=== PATIENT | male | born 1960 | race Hispanic/Latino ===

== ENCOUNTER 2017-02-10 08:54 | Day surgery (SDC) | payer OTHER ==
[2015-02-16 09:05] VITALS: BMI 26.9
[2017-02-10] MEDS ORDERED: Lactated Ringer's 1,000 ML IV ONE (09:14)
[2017-02-10 09:26] VITALS: TEMP 97
[2017-02-10] MEDS ORDERED: Lidocaine 2% MPF (5 ml) Inj ONE (09:37)
[2017-02-10] MEDS ORDERED: Propofol 10 mg/ml Inj (20 ML) ONE (09:37)
[2017-02-10 10:21] VITALS: BP 121/71; PULSE 68; RESP 14; O2SAT 100
== END 2017-02-10 10:37 | disposition home or self-care (01) ==
LOC: H.ENDO 08:54
PROVIDERS: ATTEND Internal Medicine Gastroenterology
DX: Z12.11 Encounter for screening for malignant neoplasm of colon (principal); D12.5 Benign neoplasm of sigmoid colon; K64.8 Other hemorrhoids
CPT/HCPCS: 45380; 88305; J2704; J7120

== ENCOUNTER 2017-04-19 14:51 | Observation (INO) | payer OTHER ==
[2017-04-19 14:51] VITALS: BMI 26.9
[2017-04-19] MEDS ORDERED: Sodium Chloride 0.9% 1,000 ML IV SCH (15:30)
--- NOTE | 2017-04-19 15:57 | RAD ---
HISTORY: recurrent cp for 3 days COMPARISON: No prior. TECHNIQUE: Chest PA and lateral FINDINGS: LUNGS: No active pulmonary disease. PLEURA: No significant pleural effusion identified. No pneumothorax apparent. CARDIOVASCULAR: Normal. OSSEOUS STRUCTURES: No significant abnormalities. VISUALIZED UPPER ABDOMEN: Normal. OTHER FINDINGS: None. IMPRESSION: No active disease.
--- NOTE | 2017-04-19 16:15 | ED PDOC ---
HPI: Chest Pain Time Seen by Provider: 04/19/17 15:05 Chief Complaint (Nursing): Chest Pain Chief Complaint (Provider): Chest Pain History Per: Patient History/Exam Limitations: no limitations Onset/Duration Of Symptoms: Days (x3) Current Symptoms Are (Timing): Still Present Quality: Tightness (shooting) Associated Symptoms: Nausea, Dyspnea, Diaphoresis Additional Complaint(s): Khang Barnett is a 56 year old male, with a past medical history of idiopathic peripheral neuropathy, and hypercholesterolemia, who was brought to the emergency department via EMS for left sided chest pain ongoing for the past x3 days without associated activity. Patient describes the pain as a shooting tightness and states episodes last approximately 15 min before resolve on their own. Today after lunch he noticed more shortness of breath, nausea and sweating at work. 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 Patient is currently taking Vitamin B for the peripheral neuropathy. He has a family history of cardiac disease but is unaware of which disease. Patient is a non smoker, no cocaine or ETOH use, but he occasionally smokes cannabis. He denies any other medical complaints. PMD: Jeyson Ledesma Past Medical History Reviewed: Historical Data, Nursing Documentation, Vital Signs Vital Signs: Last Vital Signs Temp 97.0 F L 04/19/17 14:54 Pulse 81 04/19/17 16:28 Resp 16 04/19/17 14:54 BP 151/86 H 04/19/17 15:51 Pulse Ox 100 04/19/17 16:28 - Medical History PMH: Anxiety, Depression, Hypercholesterolemia, Kidney Stones, Chronic Kidney Disease Other PMH: Idiopathic Peripheral Neuropathy - Surgical History Surgical History: Appendectomy - Family History Family History: States: Unknown Family Hx Other Family History: Heart disease but unaware of which disease. - Social History Current smoker - smoking cessation education provided: No Alcohol: None Drugs: Cannabis (occasional) - Immunization History Hx Influenza Vaccination: Yes - Home Medications Home Medications: Ambulatory Orders Medication Instructions Recorded Fenofibric Acid (Choline) 1 tab PO DAILY 02/10/17 [Trilipix] - Allergies Allergies/Adverse Reactions: Allergies Allergy/AdvReac Type Severity Reaction Status Date / Time No Known Allergies Allergy Verified 04/19/17 14:54 CHARLY Risk Score for UA/NSTEMI - CHARLY Risk Score Age > 64: NO 3 or more CAD Risk Factors: YES Known CAD (Stenosis greater than 50%): NO Aspirin use in past 7 days: NO Severe Angina: NO EKG ST changes greater than 0.5mm: NO Positive Cardiac Marker: NO CHARLY Score: 1 Risk %: 5% Review of Systems ROS Statement: Except As Marked, All Systems Reviewed And Found Negative Cardiovascular: Positive for: Chest Pain (x3 days) Respiratory: Positive for: Shortness of Breath, Other (diaphoresis ) Gastrointestinal: Positive for: Nausea Physical Exam - Reviewed Nursing Documentation Reviewed: Yes Vital Signs Reviewed: Yes - Physical Exam Appears: Positive for: Non-toxic, No Acute Distress (without any symptoms) Head Exam: Positive for: ATRAUMATIC, NORMAL INSPECTION, NORMOCEPHALIC Skin: Positive for: Normal Color, Warm, Dry Eye Exam: Positive for: Normal appearance, EOMI, PERRL Neck: Positive for: Painless ROM, Supple Cardiovascular/Chest: Positive for: Regular Rate, Rhythm. Negative for: Edema, Murmur Respiratory: Positive for: Normal Breath Sounds (clear auscultation b/l). Negative for: Respiratory Distress Gastrointestinal/Abdominal: Positive for: Normal Exam, Soft. Negative for: Tenderness, Guarding, Rebound Back: Positive for: Normal Inspection. Negative for: L CVA Tenderness, R CVA Tenderness, Vertebral Tenderness Extremity: Positive for: Normal ROM. Negative for: Pedal Edema, Deformity, Swelling Neurologic/Psych: Positive for: Alert, Oriented (x3). Negative for: Motor/ Sensory Deficits - ECG ECG Rhythm: Positive for: Sinus Rhythm (normal) Interpretation Of ECG: Normal axis Rate: 81 O2 Sat by Pulse Oximetry: 100 Medical Decision Making Medical Decision Making: Initial Impression: Recurrent chest pain. Initial Plan: --EKG --CMP --Troponin I --CBC w/ differential --PTT --PT --Chest two views (PA/LAT) [RAD] --Aspirin Chewable 162mg PO --Lopressor 25 mg PO --Sodium Chloride 1,000 ml IV 125 mls/hr --Urinalsysis --reevaluation --Doing cardiac workup, and keep him for observation. 15:43 Chest X-Ray FINDINGS: LUNGS: No active pulmonary disease. PLEURA: No significant pleural effusion identified. No pneumothorax apparent. CARDIOVASCULAR: Normal. OSSEOUS STRUCTURES: No significant abnormalities. VISUALIZED UPPER ABDOMEN: Normal. OTHER FINDINGS: None. IMPRESSION: No active disease. Scribe Attestation: Documented by Deniz Albarran, acting as a scribe for Chichi Bah MD. Provider Scribe Attestation: All medical record entries made by the Scribe were at my direction and personally dictated by me. I have reviewed the chart and agree that the record accurately reflects my personal performance of the history, physical exam, medical decision making, and the department course for this patient. I have also personally directed, reviewed, and agree with the discharge instructions and disposition. 4.30p patient has recurrent chest pain that has progressed over the past 3 days with increasing symptoms that suggests underlying coronary ischemia. will admit for observation. Disposition - Clinical Impression Clinical Impression: Chest pain - Patient ED Disposition Is Patient to be Admitted: Yes Doctor Will See Patient In The: Hospital Counseled Patient/Family Regarding: Diagnosis - Disposition Disposition: Transfer of Care Disposition Time: 16:30 Condition: STABLE Forms: Elastra (Kittitian) - Pt Status Changed To: Hospital Disposition Of: Observation - POA Present On Arrival: None
[2017-04-19 16:32] LABS: URINE BILIRUBIN NEGATIVE (NEGATIVE); URINE BLOOD NEGATIVE (NEGATIVE); URINE CLARITY CLEAR (Clear); URINE COLOR YELLOW (YELLOW); URINE GLUCOSE (UA) NEG (Normal); URINE LEUKOCYTE ESTERASE NEG Leu/uL (Negative); URINE NITRATE NEGATIVE (NEGATIVE); URINE PROTEIN NEGATIVE (NEGATIVE); URINE UROBILINOGEN 0.2-1.0 mg/dL (0.2-1.0)
[2017-04-19 17:38] LABS: PARTIAL THROMBOPLASTIN TIME 32.3 Seconds (25.6-37.1); PROTHROMBIN TIME 11.1 Seconds (9.8-13.1)
[2017-04-19 17:40] LABS: BASO % 0.7 % (0.0-2.0); EOS # 0.1 K/uL (0.0-0.7); EOS % 2.1 % (0.0-4.0); HEMOGLOBIN 15.9 g/dL (12.0-18.0); LYMPH # 2.1 K/uL (1.0-4.3); LYMPH % 39.3 % (20.0-40.0); MEAN CELL VOLUME 91.5 fl (80.0-94.0); MEAN CORPUSCULAR HEMOGLOBIN 31.8 pg (27.0-31.0); MEAN CORPUSCULAR HGB CONC 34.7 g/dL (33.0-37.0); MONO # 0.3 K/uL (0.0-0.8); MONO % 6.3 % (0.0-10.0); NEUT # 2.7 K/uL (1.8-7.0); NEUT % 51.6 % (50.0-75.0); NRBC % 0.3 % (0.0-0.0); RBC 4.99 Mil/uL (4.40-5.90); RED CELL DISTRIBUTION WIDTH 12.7 % (11.5-14.5); WHITE BLOOD COUNT 5.3 K/uL (4.8-10.8)
[2017-04-19 17:46] LABS: ALB/GLOB RATIO 1.6 (1.0-2.1); ALBUMIN 4.4 g/dL (3.5-5.0); ALT/SGPT 71 U/L (21-72); AST/SGOT 41 U/L (17-59); BLOOD UREA NITROGEN 20 mg/dl (9-20); CALCIUM 9.9 mg/dL (8.4-10.2); GFR AFRICAN-AMERICAN > 60; GFR NON-AFRICAN AMERICAN > 60
--- NOTE | 2017-04-19 17:46 | CP.PCM.HP ---
<Penny Barrera - Last Filed: 04/19/17 20:35> History of Present Illness - History of Present Illness History of Present Illness: Pt seen and examined at bedside and history obtained from patient. CC: Squeezing chest pain for 3 days 56M p/w 3 days of intermittent "squeezing like chest pain". All episodes were squeezing, non-radiating, lasting 15-20 seconds and recurred 3-4x at each event. These episodes were not associated with SOB, nausea, or diaphoresis until today's event which he describes as experiencing some associated dizziness and diaphoresis. Otherwise, he denies any cough, congestion, post-nasal drip, sick contacts. Currently denies dizziness, chest pain, palpitations, SOB. PMH: Peripheral Neuropathy PSH: Appendectomy, Repair deviated septum, heel spurs PFH: Father- HTN/Lung ca (smoking hx); Mother- MS; Sister #1- MS; Sister #2- Healthy SHx: Denies Smoking, Denies Alcohol, Drugs- Occasional marijuana use ALL: NKDA ED COURSE Labs: WNL except slightly elevated random glucose Trop #1: Negative EKG: HR-81bpm, SR, no acute ST-T changes CXR: "No active disease" Influenza: Negative Present on Admission - Present on Admission Any Indicators Present on Admission: No Review of Systems - Cardiovascular Cardiovascular: Chest Pain, Palpitations Past Patient History - Past Medical History & Family History Past Medical History?: No - Past Social History Alcohol: None Drugs: Cannabis (occasional) - CARDIAC Hx Hypercholesterolemia: Yes - PULMONARY Hx Respiratory Disorders: No - NEUROLOGICAL Hx Neurological Disorder: Yes Other/Comment: NUMBERNESS BOTH FOOT - HEENT Hx HEENT Problems: No - RENAL Hx Chronic Kidney Disease: Yes Hx Kidney Stones: Yes - ENDOCRINE/METABOLIC Hx Endocrine Disorders: No - HEMATOLOGICAL/ONCOLOGICAL Hx Blood Disorders: No - INTEGUMENTARY Hx Dermatological Problems: No - MUSCULOSKELETAL/RHEUMATOLOGICAL Hx Musculoskeletal Disorders: No - GASTROINTESTINAL Hx Gastrointestinal Disorders: No - GENITOURINARY/GYNECOLOGICAL Hx Genitourinary Disorders: No - PSYCHIATRIC Hx Anxiety: Yes Hx Depression: Yes - SURGICAL HISTORY Hx Appendectomy: Yes - ANESTHESIA Hx Anesthesia: Yes Hx Anesthesia Reactions: No Hx Malignant Hyperthermia: No Meds Allergies/Adverse Reactions: Allergies Allergy/AdvReac Type Severity Reaction Status Date / Time No Known Allergies Allergy Verified 04/19/17 14:54 Physical Exam - Constitutional Appears: Well, Non-toxic, No Acute Distress - Head Exam Head Exam: ATRAUMATIC, NORMAL INSPECTION - Eye Exam Eye Exam: EOMI, Normal appearance - ENT Exam ENT Exam: Mucous Membranes Moist, Normal Exam - Neck Exam Neck exam: Positive for: Full Rom, Normal Inspection - Respiratory Exam Respiratory Exam: Clear to Auscultation Bilateral, NORMAL BREATHING PATTERN - Cardiovascular Exam Cardiovascular Exam: REGULAR RHYTHM, +S1, +S2 - GI/Abdominal Exam GI & Abdominal Exam: Normal Bowel Sounds, Soft - Neurological Exam Neurological exam: Alert, Oriented x3 - Psychiatric Exam Psychiatric exam: Normal Affect, Normal Mood - Skin Skin Exam: Normal Color, Warm Results - Vital Signs Recent Vital Signs: Last Vital Signs Temp 36.1 C L 04/19/17 14:54 Pulse 81 04/19/17 16:43 Resp 16 04/19/17 14:54 BP 151/86 H 04/19/17 15:51 Pulse Ox 100 04/19/17 16:43 - Labs Result Diagrams: 04/19/17 17:00 04/19/17 17:00 Labs: Laboratory Results - last 24 hr 04/19/17 04/19/17 04/19/17 16:20 17:00 17:00 WBC 5.3 RBC 4.99 Hgb 15.9 Hct 45.6 MCV 91.5 MCH 31.8 H MCHC 34.7 RDW 12.7 Plt Count 178 MPV 9.0 Neut % (Auto) 51.6 Lymph % (Auto) 39.3 [place] % (Auto) 6.3 Eos % (Auto) 2.1 Baso % (Auto) 0.7 Neut # 2.7 Lymph # 2.1 [place] # 0.3 Eos # 0.1 Baso # 0.0 PT INR APTT Troponin I < 0.0120 Urine Color Yellow Urine Clarity Clear Urine pH 5.0 Ur Specific [place] 1.025 Urine Protein Negative Urine Glucose (UA) Neg Urine Ketones Negative Urine Blood Negative Urine Nitrate Negative Urine Bilirubin Negative Urine Urobilinogen 0.2-1.0 Ur Leukocyte Esterase Neg Urine RBC (Auto) 2 Urine Microscopic WBC < 1 Influenza Typ A,B (EIA) 04/19/17 04/19/17 17:00 17:00 WBC RBC Hgb Hct MCV MCH MCHC RDW Plt Count MPV Neut % (Auto) Lymph % (Auto) [place] % (Auto) Eos % (Auto) Baso % (Auto) Neut # Lymph # [place] # Eos # Baso # PT 11.1 INR 1.0 APTT 32.3 Troponin I Urine Color Urine Clarity Urine pH Ur Specific [place] Urine Protein Urine Glucose (UA) Urine Ketones Urine Blood Urine Nitrate Urine Bilirubin Urine Urobilinogen Ur Leukocyte Esterase Urine RBC (Auto) Urine Microscopic WBC Influenza Typ A,B (EIA) Negative for flu a/b Assessment & Plan (1) Chest pain Assessment and Plan: 56M with squeezing-like chest pain, but history/onset and thus far the work-up is not pointing towards a cardiac ischemia. Differentials at this time ACS vs. esophageal dysfunction vs. anxiety. - Admit to Telemetry for Obs - Troponins x3 - Repeat EKG in AM - Nitro, SL for chest pain - Cont Telemetry Status: Acute (2) DVT prophylaxis Assessment and Plan: Lovenox 40mg, SC, HS Status: Acute (3) Peripheral neuropathy Assessment and Plan: Chronic, controlled. - c/w Cymbalta Status: Acute <Basilio Berg - Last Filed: 04/21/17 06:42> Results - Vital Signs Recent Vital Signs: Last Vital Signs Temp 98.1 F 04/20/17 12:00 Pulse 67 04/20/17 12:00 Resp 18 04/20/17 12:00 BP 119/73 04/20/17 12:00 Pulse Ox 96 04/20/17 12:00 - Labs Result Diagrams: 04/19/17 17:00 04/19/17 17:00 Attending/Attestation - Attestation I have personally seen and examined this patient.: Yes I have fully participated in the care of the patient.: Yes I have reviewed all pertinent clinical information: Yes
[2017-04-19] MEDS ORDERED: Enoxaparin 40 mg Syringe SC SCH (22:00)
[2017-04-20 00:12] VITALS: RESP 18
[2017-04-20] MEDS ORDERED: B6 PO SCH (09:00)
[2017-04-20] MEDS ORDERED: B12 PO SCH (09:00)
[2017-04-20] MEDS ORDERED: Enoxaparin 40 mg Syringe SC SCH (09:00)
[2017-04-20] MEDS ORDERED: ALGAL OIL PO SCH (09:00)
[2017-04-20] MEDS ORDERED: LEVOMEFOLATE PO SCH (09:00)
--- NOTE | 2017-04-20 11:27 | CP.PCM.CON ---
History of Present Illness - History of Present Illness History of Present Illness: this 56-year-old man came to the emergency room after having experienced abrupt spasms of pain which started around his umbilical area And radiated to his left shoulder. This occurred off and on and mostly at rest. This was not accompanied by any nausea vomiting or perspiration. This was never during physical exertion which consists of walking up flights of stairs. He is not a smoker or a hypertensive and has no history of diabetes. His father has severe COPD and congestive cardiomyopathy. Physical examination shows a young man who is alert awake oriented afebrile resting comfortably in his bed and is able to carry on conversation. His respiratory rate was 14 breaths per minute. His heart rate was 70 beats per minute and regular. His blood pressure was 124/74 mmHg. His jugular venous pressure was not elevated and there was no hemolysis or extremity. The pedal pulses are well felt. There were no carotid bruits. [place] was not palpable. First and second heart sounds are normal. There were no murmurs. There was no gallop or rales. His abdomen was soft liver and spleen are not palpable. His electro-cardiogram showed sinus rhythm with a normal echocardiographic pattern. His labs were noted. Troponin levels x2 were normal, indicating that there was no myosite injury. The rest of his labs were noted. Impression: Atypical chest pain with no evidence of an acute coronary syndrome. The patient is chest pain-free and hemodynamically stable and may be allowed to return home to be treated as an outpatient. If his discomfort keeps returning it would be worthwhile to evaluate him for GERD. Past Patient History - Past Medical History & Family History Past Medical History?: Yes - Past Social History Smoking Status: Current Some Days Smoker - CARDIAC Hx Cardiac Disorders: Yes - PULMONARY Hx Respiratory Disorders: No - NEUROLOGICAL Hx Neurological Disorder: Yes - HEENT Hx HEENT Problems: No - RENAL Hx Chronic Kidney Disease: Yes - ENDOCRINE/METABOLIC Hx Endocrine Disorders: No - HEMATOLOGICAL/ONCOLOGICAL Hx Blood Disorders: No - INTEGUMENTARY Hx Dermatological Problems: No - MUSCULOSKELETAL/RHEUMATOLOGICAL Hx Musculoskeletal Disorders: No - GASTROINTESTINAL Hx Gastrointestinal Disorders: No - GENITOURINARY/GYNECOLOGICAL Hx Genitourinary Disorders: No - PSYCHIATRIC Hx Psychophysiologic Disorder: Yes - SURGICAL HISTORY Hx Surgeries: Yes Hx Appendectomy: Yes Other/Comment: repair deviated septum, heel spurs - ANESTHESIA Hx Anesthesia: Yes Hx Anesthesia Reactions: No Hx Malignant Hyperthermia: No Meds Allergies/Adverse Reactions: Allergies Allergy/AdvReac Type Severity Reaction Status Date / Time No Known Allergies Allergy Verified 04/19/17 14:54 - Medications Medications: Current Medications Duloxetine HCl (Cymbalta) 20 mg PO DAILY [facility] Last Admin: 04/20/17 08:57 Dose: 20 mg Enoxaparin Sodium (Lovenox) 40 mg SC HS [facility] PRN Reason: Protocol Last Admin: 04/20/17 02:22 Dose: 40 mg Fenofibrate (Tricor) 48 mg PO DAILY [facility] Last Admin: 04/20/17 08:57 Dose: 48 mg Home Med (Levomefolate/B6/B12/Algal Oil [Metanx Capsule]) 1 cap PO BID [facility] Nitroglycerin (Nitrostat Sl Tab) 0.4 mg SL Q5M PRN PRN Reason: chest pain Results - Vital Signs Recent Vital Signs: Last Vital Signs Temp 97.5 F L 04/20/17 08:00 Pulse 66 04/20/17 08:00 Resp 18 04/20/17 08:00 BP 124/76 04/20/17 08:00 Pulse Ox 98 04/20/17 08:00 - Labs Result Diagrams: 04/19/17 17:00 04/19/17 17:00 Labs: Laboratory Results - last 24 hr 04/19/17 04/19/17 04/19/17 16:20 17:00 17:00 WBC 5.3 RBC 4.99 Hgb 15.9 Hct 45.6 MCV 91.5 MCH 31.8 H MCHC 34.7 RDW 12.7 Plt Count 178 MPV 9.0 Neut % (Auto) 51.6 Lymph % (Auto) 39.3 [place] % (Auto) 6.3 Eos % (Auto) 2.1 Baso % (Auto) 0.7 Neut # 2.7 Lymph # 2.1 [place] # 0.3 Eos # 0.1 Baso # 0.0 PT INR APTT Sodium 143 Potassium 3.6 Chloride 104 Carbon Dioxide 25 Anion Gap 18 BUN 20 Creatinine 1.1 Est GFR ( Amer) > 60 Est GFR (Non-Af Amer) > 60 Random Glucose 124 H Calcium 9.9 Total Bilirubin 0.5 AST 41 ALT 71 Alkaline Phosphatase 60 Troponin I < 0.0120 Total Protein 7.1 Albumin 4.4 Globulin 2.7 Albumin/Globulin Ratio 1.6 Urine Color Yellow Urine Clarity Clear Urine pH 5.0 Ur Specific [place] 1.025 Urine Protein Negative Urine Glucose (UA) Neg Urine Ketones Negative Urine Blood Negative Urine Nitrate Negative Urine Bilirubin Negative Urine Urobilinogen 0.2-1.0 Ur Leukocyte Esterase Neg Urine RBC (Auto) 2 Urine Microscopic WBC < 1 Influenza Typ A,B (EIA) 04/19/17 04/19/17 04/20/17 17:00 17:00 02:00 WBC RBC Hgb Hct MCV MCH MCHC RDW Plt Count MPV Neut % (Auto) Lymph % (Auto) [place] % (Auto) Eos % (Auto) Baso % (Auto) Neut # Lymph # [place] # Eos # Baso # PT 11.1 INR 1.0 APTT 32.3 Sodium Potassium Chloride Carbon Dioxide Anion Gap BUN Creatinine Est GFR ( Amer) Est GFR (Non-Af Amer) Random Glucose Calcium Total Bilirubin AST ALT Alkaline Phosphatase Troponin I < 0.0120 Total Protein Albumin Globulin Albumin/Globulin Ratio Urine Color Urine Clarity Urine pH Ur Specific [place] Urine Protein Urine Glucose (UA) Urine Ketones Urine Blood Urine Nitrate Urine Bilirubin Urine Urobilinogen Ur Leukocyte Esterase Urine RBC (Auto) Urine Microscopic WBC Influenza Typ A,B (EIA) Negative for flu a/b
--- NOTE | 2017-04-20 11:31 | CP.PCM.DIS ---
Provider - Provider Date of Admission: 04/19/17 16:43 Attending physician: Jeyson Ledesma MD Primary care physician: Jeyson Ledesma MD Time Spent in preparation of Discharge (in minutes): 30 Diagnosis - Discharge Diagnosis (1) Chest pain Status: Acute (2) Hypercholesterolemia Status: Acute (3) Peripheral neuropathy Status: Acute Hospital Course - Lab Results Lab Results: Most Recent Lab Values WBC 5.3 K/uL (4.8-10.8) 04/19/17 17:00 RBC 4.99 Mil/uL (4.40-5.90) 04/19/17 17:00 Hgb 15.9 g/dL (12.0-18.0) 04/19/17 17:00 Hct 45.6 % (35.0-51.0) 04/19/17 17:00 MCV 91.5 fl (80.0-94.0) 04/19/17 17:00 MCH 31.8 pg (27.0-31.0) H 04/19/17 17:00 MCHC 34.7 g/dL (33.0-37.0) 04/19/17 17:00 RDW 12.7 % (11.5-14.5) 04/19/17 17:00 Plt Count 178 K/uL (130-400) 04/19/17 17:00 MPV 9.0 fl (7.2-11.7) 04/19/17 17:00 Neut % (Auto) 51.6 % (50.0-75.0) 04/19/17 17:00 Lymph % (Auto) 39.3 % (20.0-40.0) 04/19/17 17:00 [place] % (Auto) 6.3 % (0.0-10.0) 04/19/17 17:00 Eos % (Auto) 2.1 % (0.0-4.0) 04/19/17 17:00 Baso % (Auto) 0.7 % (0.0-2.0) 04/19/17 17:00 Neut # 2.7 K/uL (1.8-7.0) 04/19/17 17:00 Lymph # 2.1 K/uL (1.0-4.3) 04/19/17 17:00 [place] # 0.3 K/uL (0.0-0.8) 04/19/17 17:00 Eos # 0.1 K/uL (0.0-0.7) 04/19/17 17:00 Baso # 0.0 K/uL (0.0-0.2) 04/19/17 17:00 PT 11.1 Seconds (9.8-13.1) 04/19/17 17:00 INR 1.0 (0.9-1.2) 04/19/17 17:00 APTT 32.3 Seconds (25.6-37.1) 04/19/17 17:00 Sodium 143 mmol/l (132-148) 04/19/17 17:00 Potassium 3.6 MMOL/L (3.6-5.0) 04/19/17 17:00 Chloride 104 mmol/L (98-107) 04/19/17 17:00 Carbon Dioxide 25 mmol/L (22-30) 04/19/17 17:00 Anion Gap 18 (10-20) 04/19/17 17:00 BUN 20 mg/dl (9-20) 04/19/17 17:00 Creatinine 1.1 mg/dl (0.8-1.5) 04/19/17 17:00 Est GFR ( Amer) > 60 04/19/17 17:00 Est GFR (Non-Af Amer) > 60 04/19/17 17:00 Random Glucose 124 mg/dL (75-110) H 04/19/17 17:00 Calcium 9.9 mg/dL (8.4-10.2) 04/19/17 17:00 Total Bilirubin 0.5 mg/dl (0.2-1.3) 04/19/17 17:00 AST 41 U/L (17-59) 04/19/17 17:00 ALT 71 U/L (21-72) 04/19/17 17:00 Alkaline Phosphatase 60 U/L (38-126) 04/19/17 17:00 Troponin I < 0.0120 ng/mL (0.00-0.120) 04/20/17 02:00 Total Protein 7.1 G/DL (6.3-8.2) 04/19/17 17:00 Albumin 4.4 g/dL (3.5-5.0) 04/19/17 17:00 Globulin 2.7 gm/dL (2.2-3.9) 04/19/17 17:00 Albumin/Globulin Ratio 1.6 (1.0-2.1) 04/19/17 17:00 Urine Color Yellow (YELLOW) 04/19/17 16:20 Urine Clarity Clear (Clear) 04/19/17 16:20 Urine pH 5.0 (5.0-8.0) 04/19/17 16:20 Ur Specific [place] 1.025 (1.003-1.030) 04/19/17 16:20 Urine Protein Negative mg/dL (NEGATIVE) 04/19/17 16:20 Urine Glucose (UA) Neg mg/dL (Normal) 04/19/17 16:20 Urine Ketones Negative mg/dL (NEGATIVE) 04/19/17 16:20 Urine Blood Negative (NEGATIVE) 04/19/17 16:20 Urine Nitrate Negative (NEGATIVE) 04/19/17 16:20 Urine Bilirubin Negative (NEGATIVE) 04/19/17 16:20 Urine Urobilinogen 0.2-1.0 mg/dL (0.2-1.0) 04/19/17 16:20 Ur Leukocyte Esterase Neg [place]/uL (Negative) 04/19/17 16:20 Urine RBC (Auto) 2 /hpf (0-3) 04/19/17 16:20 Urine Microscopic WBC < 1 /hpf (0-5) 04/19/17 16:20 Influenza Typ A,B (EIA) Negative for flu a/b (NEGATIVE) 04/19/17 17:00 - Hospital Course Hospital Course: 56 year old male PMHx idiopathic peripheral neuropathy and hypercholesterolemia admitted for chest pain. EKG shower NSR with normal electrocardiographic pattern , CXR revealed no active disease, and troponin levels x2 were normal. Cardiology was consulted and recommend safe discharge home as patient remained chest pain free and hemodynamically stable; recommend workup for GERD if discomfort persists. After an uneventful hospital stay, patient will be discharged home. Follow-up with Dr. Ledesma within 1 week of discharge. Continue home meds. Discharge Exam - Head Exam Head Exam: ATRAUMATIC, NORMAL INSPECTION, NORMOCEPHALIC - Eye Exam Eye Exam: EOMI, Normal appearance Pupil Exam: NORMAL ACCOMODATION, PERRL - ENT Exam ENT Exam: Mucous Membranes Moist, Normal Exam - Neck Exam Neck exam: Full Rom, Normal Inspection - Respiratory Exam Respiratory Exam: Clear to PA & Lateral, NORMAL BREATHING PATTERN, UNREMARKABLE. absent: Rales, Rhonchi, Wheezes - Cardiovascular Exam Cardiovascular Exam: REGULAR RHYTHM, +S1, +S2 - GI/Abdominal Exam GI & Abdominal Exam: Normal Bowel Sounds, Soft, Unremarkable. absent: Guarding , Tenderness - Extremities Exam Extremities exam: full ROM, normal inspection - Back Exam Back exam: absent: tenderness - Neurological Exam Neurological exam: Alert, Oriented x3 - Psychiatric Exam Psychiatric exam: Anxious - Skin Skin Exam: Dry, Intact, Normal Color, Warm Discharge Plan - Follow Up Plan Condition: STABLE Disposition: HOME/ ROUTINE Patient education suggested?: Yes Instructions: Chest Pain (DC), Chest Pain (GEN), Cholesterol and Your Health ( GEN), Peripheral Neuropathy (GEN) Additional Instructions: Follow up with Dr. Ledesma within 1 week of discharge. Referrals: Jeyson Ledesma MD [Family Provider] - 7days (Please call office and schedule appointment within 1 week of discharge.)
[2017-04-20 12:45] VITALS: BP 119/73; PULSE 67; TEMP 98.1; O2SAT 96
--- NOTE | 2017-04-21 18:35 | CARD ---
APPROVED REPORT EKG Measurement Heart [id number] <Conclusion> Normal sinus rhythm Normal ECG
== END 2017-04-20 14:00 | disposition home or self-care (01) ==
LOC: H.ER 14:51 → H.ERHOLD 16:43 → H.TEL 21:30
PROVIDERS: ADMIT Family Medicine; ATTEND Family Medicine
DX: R07.89 Other chest pain (principal); G60.8 Other hereditary and idiopathic neuropathies; E78.00 Pure hypercholesterolemia, unspecified; F12.90 Cannabis use, unspecified, uncomplicated; F17.210 Nicotine dependence, cigarettes, uncomplicated; Z87.442 Personal history of urinary calculi; Z82.49 Family history of ischemic heart disease and other diseases of the circulatory system
CPT/HCPCS: 36415; 71046; 80053; 81003; 84484; 85025; 85610; 85730; 87804; 99284; G0378; J1650; J7040

== ENCOUNTER 2017-05-11 12:31 | Emergency (ER) | payer OTHER ==
[2017-05-11 12:31] VITALS: BMI 26.9
[2017-05-11 13:08] VITALS: RESP 16; TEMP 97; O2SAT 96
[2017-05-11 13:29] VITALS: BP 138/89
--- NOTE | 2017-05-11 14:18 | ED PDOC ---
HPI: Hypertension/Hypotension Time Seen by Provider: 05/11/17 13:18 Chief Complaint (Nursing): High Blood Pressure Chief Complaint (Provider): High Blood Pressure History Per: Patient History/Exam Limitations: no limitations Onset/Duration Of Symptoms: Days (x1) Current Symptoms Are (Timing): Still Present Additional Complaint(s): 56 year old male presents to the ER complaining he noticed some redness to his right eye while looking in a bathroom mirror, onset today after a work meeting. Patient then felt his blood pressure was high, prompting him to come to the ER for further evaluation. Seen recently on 04/19 for chest pain, had a normal EKG and work-up, and was diagnosed with anxiety. Patient has followed up with Dr. Mcgill since then and was started on daily aspirin and a medication for his anxiety. Currently he denies any eye pain, leg swelling, abdominal pain, vomiting, chest pain, shortness of breath, headache, or changes in vision. Patient did feel slightly dizzy however he attributes this to missing lunch. Upon arrival, vitals are stable including blood pressure of 134/89. Of note, patient also reports that his symptoms started at work, where he has been feeling stressed out due to a poor relationship with a coworker. PMD: Dr. Ledesma Past Medical History Reviewed: Historical Data, Nursing Documentation, Vital Signs Vital Signs: Last Vital Signs Temp 97.0 F L 05/11/17 13:04 Pulse 89 05/11/17 13:04 Resp 16 05/11/17 13:04 BP 138/89 05/11/17 13:17 Pulse Ox 96 05/11/17 13:04 - Medical History PMH: Anxiety, Depression, Hypercholesterolemia, Kidney Stones, Chronic Kidney Disease Denies: Diabetes, HIV Other PMH: Neuropathy - Surgical History Surgical History: Appendectomy Other surgeries: Foot surgery - Family History Family History: States: Unknown Family Hx - Social History Current smoker - smoking cessation education provided: No Alcohol: None Drugs: Denies - Immunization History Hx Influenza Vaccination: Yes - Home Medications Home Medications: Ambulatory Orders Medication Instructions Recorded Fenofibric Acid (Choline) 45 mg PO DAILY 02/10/17 [Trilipix] DULoxetine [Cymbalta] 20 mg PO DAILY 04/19/17 Levomefolate/B6/B12/Algal Oil 1 cap PO BID 04/19/17 [Metanx Capsule] - Allergies Allergies/Adverse Reactions: Allergies Allergy/AdvReac Type Severity Reaction Status Date / Time No Known Allergies Allergy Verified 04/19/17 14:54 Review of Systems ROS Statement: Except As Marked, All Systems Reviewed And Found Negative Constitutional: Negative for: Fever Eyes: Positive for: Redness. Negative for: Pain, Vision Change Cardiovascular: Negative for: Chest Pain Respiratory: Negative for: Shortness of Breath Gastrointestinal: Negative for: Nausea, Vomiting, Abdominal Pain Neurological: Negative for: Headache, Dizziness Psych: Positive for: Anxiety Physical Exam - Reviewed Nursing Documentation Reviewed: Yes Vital Signs Reviewed: Yes - Physical Exam Appears: Positive for: Well, Non-toxic, No Acute Distress Head Exam: Positive for: ATRAUMATIC, NORMAL INSPECTION, NORMOCEPHALIC Skin: Positive for: Normal Color, Warm, Dry. Negative for: Diaphoresis Eye Exam: Positive for: EOMI, PERRL, Other (3mm x 3 mm conjunctival hemorrhage to medial aspect of right eye). Negative for: Nystagmus, Periorbital swelling, Periorbital tenderness ENT: Positive for: Pharynx Is (clear). Negative for: Sinus Pain/Drainage, Pharyngeal Erythema Neck: Positive for: Normal, Painless ROM. Negative for: Pain On Movement Of Neck Cardiovascular/Chest: Positive for: Regular Rate, Rhythm. Negative for: Murmur Respiratory: Positive for: Normal Breath Sounds, Other (respirations even and nonlabored, speaking in full sentences). Negative for: Decreased Breath Sounds , Accessory Muscle Use, Respiratory Distress Gastrointestinal/Abdominal: Positive for: Bowel Sounds (active x4), Soft. Negative for: Tenderness, Mass, Distended, Guarding Back: Negative for: Vertebral Tenderness Extremity: Positive for: Normal ROM. Negative for: Pedal Edema, Calf Tenderness , Deformity, Swelling Neurologic/Psych: Positive for: Alert, Oriented (x3), Mood/Affect (appropriate) , Gait (steady). Negative for: Motor/Sensory Deficits, Aphasia, Facial Droop - ECG ECG: Positive for: Interpreted By Me, Viewed By Me ECG Rhythm: Positive for: Normal QRS, Sinus Rhythm (with normal axis). Negative for: ST/T Changes Interpretation Of ECG: Normal Rate: 75 O2 Sat by Pulse Oximetry: 96 (RA) Pulse Ox Interpretation: Normal Medical Decision Making Medical Decision Making: Impression: Panic attack, Anxiety Plan: Patient is medically stable for discharge home. Vital signs stable. Advised to continue medications as prescribed and follow up with PMD as scheduled next week. There is agreement to discharge plan. Return if symptoms persist or worsen. Scribe Attestation: Documented by Christina Soaers, acting as a scribe for Yasmine Frye PA-C Provider Scribe Attestation: All medical record entries made by the Scribe were at my direction and personally dictated by me. I have reviewed the chart and agree that the record accurately reflects my personal performance of the history, physical exam, medical decision making, and the department course for this patient. I have also personally directed, reviewed, and agree with the discharge instructions and disposition. Disposition - Clinical Impression Clinical Impression: Elevated blood pressure reading, Conjunctival hemorrhage of right eye, Anxiety , Panic attack - Patient ED Disposition Is Patient to be Admitted: No Counseled Patient/Family Regarding: Diagnosis, Need For Followup - Disposition Referrals: Jeyson Ledesma MD [Family Provider] - Disposition: Routine/Home Disposition Time: 14:43 Condition: STABLE Instructions: High Blood Pressure in Adults, Anxiety, Adult (DC), Subconjunctival Hemorrhage, Hypertension (ED) Forms: [employer] (Maltese) Print Language: GUATEMALAN - POA Present On Arrival: None
[2017-05-11 14:24] VITALS: PULSE 75
== END 2017-05-11 14:56 | disposition home or self-care (01) ==
LOC: H.ER 12:31
DX: I10 Essential (primary) hypertension (principal); I12.9 Hypertensive chronic kidney disease with stage 1 through stage 4 chronic kidney disease, or unspecified chronic kidney disease; E78.00 Pure hypercholesterolemia, unspecified; F32.9 Major depressive disorder, single episode, unspecified; H11.31 Conjunctival hemorrhage, right eye; F41.0 Panic disorder [episodic paroxysmal anxiety]; Z79.82 Long term (current) use of aspirin

== ENCOUNTER 2018-06-28 17:14 | Emergency (ER) | payer OTHER ==
[2018-06-28 17:14] VITALS: BMI 26.9
[2018-06-28 17:44] VITALS: RESP 16; O2SAT 97
--- NOTE | 2018-06-28 18:32 | ED PDOC ---
HPI: Headache Time Seen by Provider: 06/28/18 17:48 Chief Complaint (Nursing): Dizziness/Lightheaded Chief Complaint (Provider): headache History Per: Patient History/Exam Limitations: no limitations Onset/Duration Of Symptoms: Days (1 week) Current Symptoms Are (Timing): Still Present Severity: Moderate Quality: Aching Associated Symptoms: Blurred Vision, Nausea, Extremity Weakness (chronic due to peripheral neuropathy, no new weakness, no unilateral weakness). denies: Photophobia, Vomiting Additional Complaint(s): gradual onset LEFT hindu area headache radiating to cheek pressurelike no trauma/injury no focal weakness PMD Dr Ledesma Past Medical History Reviewed: Historical Data, Nursing Documentation, Vital Signs Vital Signs: Last Vital Signs Temp 98.6 F 06/28/18 17:40 Pulse 88 06/28/18 17:40 Resp 16 06/28/18 17:40 BP 151/79 H 06/28/18 17:40 Pulse Ox 97 06/28/18 17:40 - Medical History PMH: Anxiety, Depression, Hypercholesterolemia, Kidney Stones, Chronic Kidney Disease Denies: Diabetes, HIV - Surgical History Surgical History: Appendectomy - Family History Family History: States: Unknown Family Hx - Social History Drugs: Denies - Immunization History Hx Influenza Vaccination: Yes - Home Medications Home Medications: Ambulatory Orders Medication Instructions Recorded Fenofibric Acid (Choline) 45 mg PO DAILY 02/10/17 [Trilipix] DULoxetine [Cymbalta] 20 mg PO DAILY 04/19/17 Levomefolate/B6/B12/Algal Oil 1 cap PO BID 04/19/17 [Metanx Capsule] Ketorolac Tromethamine [Toradol] 10 mg PO Q8 PRN #30 tab 06/28/18 - Allergies Allergies/Adverse Reactions: Allergies Allergy/AdvReac Type Severity Reaction Status Date / Time No Known Allergies Allergy Verified 06/28/18 17:40 Review of Systems ROS Statement: Except As Marked, All Systems Reviewed And Found Negative (and as per HPI) Constitutional: Positive for: Weakness, Malaise Gastrointestinal: Positive for: Nausea. Negative for: Vomiting Neurological: Positive for: Weakness (chronic no new), Numbness (chronic), Headache, Dizziness. Negative for: Incoordination, Confusion, Seizures, Altered Mental Status Physical Exam - Reviewed Nursing Documentation Reviewed: Yes Vital Signs Reviewed: Yes - Physical Exam Appears: Positive for: Non-toxic, No Acute Distress Head Exam: Positive for: ATRAUMATIC, NORMOCEPHALIC Skin: Positive for: Warm, Dry Eye Exam: Positive for: EOMI, PERRL ENT: Negative for: Pharyngeal Erythema, Tonsillar Exudate Neck: Positive for: Painless ROM, Supple Cardiovascular/Chest: Positive for: Regular Rate, Rhythm. Negative for: Murmur Respiratory: Positive for: Normal Breath Sounds. Negative for: Respiratory Distress Gastrointestinal/Abdominal: Positive for: Soft. Negative for: Tenderness Back: Positive for: Normal Inspection. Negative for: Decreased ROM Extremity: Positive for: Normal ROM. Negative for: Deformity Lymphatic: Negative for: Adenopathy Neurological/Psych: Positive for: Awake, Alert, Oriented (x3), gmat instructor II-XII (intact). Negative for: Motor/Sensory Deficits, Facial Droop - Laboratory Results Result Diagrams: 06/28/18 18:50 06/28/18 18:50 Lab Results: No clinically significant abnormalities - ECG ECG: Positive for: Interpreted By Me ECG Rhythm: Positive for: Normal QRS, Normal ST Segment, Sinus Rhythm O2 Sat by Pulse Oximetry: 97 Pulse Ox Interpretation: Normal - CT Scan/US CT head Other Rad Studies (CT/US): Radiology Report Reviewed - Progress ED Course And Treament: Accession No. : [id number] Patient Name / ID : ANTONIO Muniz / [id number] Exam Date : 06/28/2018 18:42:28 ( Approved ) Study Comment : Sex / Age : M / 57Y Creator : Freida Daugherty MD Dictator : Freida Daugherty MD Whipped Topping Supervisor : Shredding Machine Operator : Freida Daugherty MD Approver2 : Report Date : 06/28/2018 18:52:21 My Comment : Date of service: 06/28/2018 PROCEDURE: CT HEAD WITHOUT CONTRAST. HISTORY: Dizziness and headache COMPARISON: None available. TECHNIQUE: Axial computed tomography images were obtained through the head/brain without intravenous contrast. Radiation dose: Total exam DLP = 851.71 mGy-cm. This CT exam was performed using one or more of the following dose reduction techniques: Automated exposure control, adjustment of the mA and/or kV according to patient size, and/or use of iterative reconstruction technique. FINDINGS: HEMORRHAGE: No intracranial hemorrhage. BRAIN: Bruno-white matter differentiation is preserved. There is no mass, mass effect or abnormal extra-axial fluid collection. There is no territorial infarction. The midline sagittal structures are normal. VENTRICLES: The ventricles are normal in size, shape and configuration. CALVARIUM: There is no calvarial fracture or extracranial soft tissue swelling. PARANASAL SINUSES: Predominantly clear. MASTOID AIR CELLS: Predominantly clear. OTHER FINDINGS: None. IMPRESSION: No acute intracranial abnormality. If there is a persistent focal neurologic deficit and an ongoing clinical concern for acute infarction, an MRI of the brain without intravenous contrast would be a more sensitive modality for evaluation of hyperacute/acute ischemic infarction. Re-evaluation Time: 21:24 Condition: Improved Disposition - Clinical Impression Clinical Impression: Headache Counseled Patient/Family Regarding: Studies Performed, Diagnosis, Need For Followup, Rx Given - Disposition Referrals: Jeyson Ledesma MD [Family Provider] - Marcelo Simon MD [Staff Provider] - Disposition: Routine/Home Disposition Time: 20:28 Condition: IMPROVED Additional Instructions: PLEASE FOLLOWUP WITH DR SIMON AND DR LEDESMA FOR FURTHER EVALUATION OF HEADACHE TAKE TYLENOL AND/OR TORADOL FOR HEADACHE Prescriptions: Ketorolac Tromethamine [Toradol] 10 mg PO Q8 PRN #30 tab PRN Reason: Headache Instructions: Headache, Adult (DC) Forms: [facility] ED School/Work Excuse
--- NOTE | 2018-06-28 18:56 | CT ---
Date of service: 06/28/2018 PROCEDURE: CT HEAD WITHOUT CONTRAST. HISTORY: Dizziness and headache COMPARISON: None available. TECHNIQUE: Axial computed tomography images were obtained through the head/brain without intravenous contrast. Radiation dose: Total exam DLP = 851.71 mGy-cm. This CT exam was performed using one or more of the following dose reduction techniques: Automated exposure control, adjustment of the mA and/or kV according to patient size, and/or use of iterative reconstruction technique. FINDINGS: HEMORRHAGE: No intracranial hemorrhage. BRAIN: Bruno-white matter differentiation is preserved. There is no mass, mass effect or abnormal extra-axial fluid collection. There is no territorial infarction. The midline sagittal structures are normal. VENTRICLES: The ventricles are normal in size, shape and configuration. CALVARIUM: There is no calvarial fracture or extracranial soft tissue swelling. PARANASAL SINUSES: Predominantly clear. MASTOID AIR CELLS: Predominantly clear. OTHER FINDINGS: None. IMPRESSION: No acute intracranial abnormality. If there is a persistent focal neurologic deficit and an ongoing clinical concern for acute infarction, an MRI of the brain without intravenous contrast would be a more sensitive modality for evaluation of hyperacute/acute ischemic infarction.
[2018-06-28 19:30] LABS: BASO % 0.7 % (0.0-2.0); EOS # 0.2 K/uL (0.0-0.7); EOS % 2.7 % (0.0-4.0); HEMOGLOBIN 15.3 g/dL (12.0-18.0); LYMPH # 2.5 K/uL (1.0-4.3); MEAN CELL VOLUME 90.6 fl (80.0-94.0); MEAN CORPUSCULAR HEMOGLOBIN 32.4 pg (27.0-31.0); MEAN CORPUSCULAR HGB CONC 35.8 g/dL (33.0-37.0); MEAN PLATELET VOLUME 8.6 fl (7.2-11.7); MONO # 0.5 K/uL (0.0-0.8); NEUT # 2.8 K/uL (1.8-7.0); NEUT % 46.6 % (50.0-75.0); NRBC % 0.2 % (0.0-0.0); RBC 4.73 Mil/uL (4.40-5.90); RED CELL DISTRIBUTION WIDTH 12.6 % (11.5-14.5); WHITE BLOOD COUNT 5.9 K/uL (4.8-10.8)
[2018-06-28 19:39] LABS: ALB/GLOB RATIO 1.7 (1.0-2.1); ALBUMIN 4.3 g/dL (3.5-5.0); ALT/SGPT 69 U/L (21-72); AST/SGOT 37 U/L (17-59); BLOOD UREA NITROGEN 24 mg/dl (9-20); GFR NON-AFRICAN AMERICAN > 60
[2018-06-28 21:51] VITALS: BP 135/75; PULSE 82; TEMP 98.4
--- NOTE | 2018-06-29 09:18 | CARD ---
APPROVED REPORT Date of service: 06/28/2018 EKG Measurement Heart [id number] <Conclusion> Normal sinus rhythm Normal ECG
== END 2018-06-28 21:49 | disposition home or self-care (01) ==
LOC: H.ER 17:14
DX: R51 Headache (principal); E78.00 Pure hypercholesterolemia, unspecified
CPT/HCPCS: 70450; 80053; 82948; 83735; 84100; 84443; 85025; 93005; 96374; 99285; J1885